=== PATIENT | female | born 1995 | race American Indian/Alaskan Native ===

== ENCOUNTER 2019-03-12 08:35 | Emergency (ER) | payer OTHER ==
[2019-03-12 08:46] VITALS: BP 133/64
[2019-03-12 09:37] LABS: HCG Qualitative,Urine Negative (Negative)
[2019-03-12 09:42] LABS: Bacteria,Urine 2+ /HPF (Negative); Bilirubin,Urine NEG (Negative); Blood,Urine SM (Negative); Color,Urine Yellow (Yellow); Mucus,Urine FEW /HPF; Urobilinogen,Urine < 2.0 mg/dL (<2.0)
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
== END 2019-03-12 10:32 | disposition home or self-care (01) ==
LOC: ED 08:35
DX: N39.0 Urinary tract infection, site not specified (principal); N76.0 Acute vaginitis; B96.89 Other specified bacterial agents as the cause of diseases classified elsewhere; M54.9 Dorsalgia, unspecified; Z79.899 Other long term (current) drug therapy
CPT/HCPCS: 81001; 81025; 87086; 99283

== ENCOUNTER 2021-02-28 19:32 | Emergency (ER) | payer MEDICAID, OTHER ==
[2021-02-28] MEDS ORDERED: LIDOCAINE-MPF (1%) 10 MG/1 ML VIAL 5 ML INFILTRATI ONE (20:09)
[2021-02-28] MEDS ORDERED: TETANUS,DIPH,PERTUSS(ACELL) VACCINE 0.5 ML SYRINGE IM ONE (20:09)
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
[2021-02-28 21:12] VITALS: BP 133/71
== END 2021-02-28 21:26 ==
LOC: ED 19:32
DX: S41.012A Laceration without foreign body of left shoulder, initial encounter (principal); S30.811A Abrasion of abdominal wall, initial encounter; S00.81XA Abrasion of other part of head, initial encounter; X99.1XXA Assault by knife, initial encounter; Y93.89 Activity, other specified; Y92.89 Other specified places as the place of occurrence of the external cause; Y99.8 Other external cause status
CPT/HCPCS: 90471; 90715; 99281